=== PATIENT | male | born 1970 | race Hispanic/Latino ===

== ENCOUNTER 2017-09-28 12:01 | Inpatient (IN) | payer MEDICAID ==
[~2017-09-28] VITALS: Ht 175.3 cm; Wt 74.4 kg
[2017-09-28] MEDS ORDERED: SODIUM CHLORIDE 0.9% 1000ML 1,000 ML IV ONE ×3 (12:36→17:42)
[2017-09-28 12:59] LABS: BASOPHILS % (AUTO) 0.4 % (0.0-5.0); EOSINOPHILS % (AUTO) 1.5 % (0.0-8.0); HEMATOCRIT 36.5 % (42-54); MEAN CORPUSCULAR HEMOGLOBIN 31.1 pg (27.0-33.0); MEAN CORPUSCULAR VOLUME 88.8 fL (79-99); MONOCYTES % (AUTO) 11.2 % (3.0-13.0); NEUTROPHILS % (AUTO) 76.9 % (40.0-77.0); PLATELET COUNT (AUTO) 231 K/uL (130-400); RED BLOOD CELL COUNT(AUTO) 4.11 MIL/uL (4.50-6.20); RED CELL DISTRIBUTION WIDTH 13.2 % (11.0-15.5); WHITE BLOOD COUNT (AUTO) 14.8 K/uL (4.8-10.8)
[2017-09-28 13:07] LABS: CREATININE 1.2 mg/dL (0.5-1.5); POTASSIUM 3.8 mmol/L (3.5-5.1)
[2017-09-28 13:12] LABS: ALBUMIN 3.3 g/dL (3.5-5.0); BILIRUBIN,TOTAL 0.6 mg/dL (0.2-1.0); TOTAL PROTEIN, SERUM 8.1 g/dL (6.0-8.3)
[2017-09-28] MEDS ORDERED: ONDANSETRON HCL MDV 20ML 2 MG/ML VIAL ONE (14:08)
[2017-09-28] MEDS ORDERED: KETOROLAC TROMETHAMINE 30MG/ML ONE (14:08)
[2017-09-28 14:33] LABS: CREATINE KINASE MB < 0.5 ng/mL (0.5-3.6); CREATINE KINASE, TOTAL 45 U/L (21-232)
[2017-09-28] MEDS ORDERED: MEROPENEM 1 GM VIAL ONE (14:40)
[2017-09-28 14:56] LABS: APPEARANCE,URINE Clear (CLEAR); BILIRUBIN,URINE Negative (NEGATIVE); COLOR,URINE Dark Yellow (YELLOW); GLUCOSE, URINE (UA) Negative (NEGATIVE); KETONES,URINE Negative (NEGATIVE); LEUKOCYTE ESTERASE ,URINE Trace (NEGATIVE); NITRATE,URINE Negative (NEGATIVE); OCCULT BLOOD,URINE Nonhemolyzed Trace (NEGATIVE); PH,URINE 5.5 (5.0-8.0); PROTEIN,URINE Negative (NEGATIVE)
[2017-09-28 15:17] LABS: BACTERIA,URINE Few /HPF (None Seen); SQUAMOUS EPITHELIAL CELL,UR Rare /HPF (0-2)
[2017-09-28 15:18] LABS: TRANSITIONAL EPI CELLS,URINE Rare /HPF (None Seen)
[2017-09-28] MEDS ORDERED: SODIUM CHLORIDE 0.9% 1000ML 1,000 ML IV SCH (16:30)
[2017-09-28] MEDS ORDERED: MEROPENEM 500MG+NS 50ML 50 ML IV SCH (16:30)
[2017-09-28] MEDS ORDERED: MORPHINE SULFATE 2 MG/ML 1ML SYG IV PRN (16:30)
[2017-09-28] MEDS ORDERED: ONDANSETRON HCL 4 MG/2 ML VIAL IV PRN (16:30)
[2017-09-28] MEDS ORDERED: VANCOMYCIN 1GM+NS 250ML 250 ML IV SCH (16:30)
[2017-09-28] MEDS ORDERED: ACETAMINOPHEN 325 MG TAB PO PRN (16:30)
[2017-09-28] MEDS ORDERED: VANCOMYCIN PROTOCOL PER PHARMACY IV PRN (16:30)
[2017-09-28] MEDS ORDERED: IOPAMIDOL-370 75 ML VIAL IV ONE (17:22)
[2017-09-28 19:00] VITALS: BP 97/56
[2017-09-28] MEDS: MORPHINE SULFATE 4 MG/1ML SYG IV PRN (19:53)
[2017-09-28] MEDS: VANCOMYCIN 1GM+NS 250ML 250 ML IV SCH (21:00)
[2017-09-28] MEDS: MEROPENEM 500 MG VIAL IVP SCH (22:09)
[2017-09-28] MEDS: SODIUM CHLORIDE 0.9% 1000ML 1,000 ML IV SCH (22:10)
[2017-09-28 23:55] VITALS: BP 124/79
[2017-09-29] MEDS: MORPHINE SULFATE 4 MG/1ML SYG IV PRN ×7 (00:20→20:30)
[2017-09-29] MEDS: SODIUM CHLORIDE 0.9% 1000ML 1,000 ML IV SCH ×3 (02:23→20:30)
[2017-09-29 04:17] VITALS: BP 114/63
[2017-09-29 04:20] LABS: HEMATOCRIT 34.2 % (42-54); MEAN CORPUSCULAR HEMOGLOBIN 30.3 pg (27.0-33.0); MEAN CORPUSCULAR VOLUME 89.1 fL (79-99); PLATELET COUNT (AUTO) 205 K/uL (130-400); RED BLOOD CELL COUNT(AUTO) 3.84 MIL/uL (4.50-6.20); RED CELL DISTRIBUTION WIDTH 13.4 % (11.0-15.5); WHITE BLOOD COUNT (AUTO) 14.2 K/uL (4.8-10.8)
[2017-09-29 04:27] LABS: CREATININE 0.9 mg/dL (0.5-1.5); MAGNESIUM 1.8 mg/dL (1.80-2.40)
[2017-09-29] MEDS: MEROPENEM 500 MG VIAL IVP SCH ×3 (05:02→21:45)
[2017-09-29] MEDS ORDERED: PANTOPRAZOLE SODIUM 40 MG TABLET.DR PO ONE (06:27)
[2017-09-29] MEDS: PANTOPRAZOLE SODIUM 40 MG TABLET.DR PO SCH (06:53)
[2017-09-29 07:00] VITALS: BP 112/60
[2017-09-29] MEDS: VANCOMYCIN 1GM+NS 250ML 250 ML IV SCH ×2 (07:40→21:51)
[2017-09-29] MEDS: ENOXAPARIN SODIUM 40 MG/0.4 ML SYRINGE SQ SCH (09:02)
[2017-09-29 11:00] VITALS: BP 106/58
[2017-09-29 16:00] VITALS: BP 139/64
[2017-09-29 19:34] VITALS: BP 109/72
[2017-09-29] MEDS ORDERED: FLUO20CA30 PO (20:07)
[2017-09-29] MEDS ORDERED: TRAZ-187 PO (20:07)
[2017-09-29] MEDS ORDERED: DIAZ10TA4 PO (20:07)
[2017-09-29] MEDS ORDERED: METO50TA18 PO (20:07)
[2017-09-29] MEDS: DIAZEPAM 5 MG TABLET PO SCH (21:45)
[2017-09-29] MEDS: FLUOXETINE HCL 20 MG CAPSULE PO SCH (21:45)
[2017-09-29] MEDS: TRAZODONE HCL 100 MG TABLET PO SCH (21:50)
[2017-09-29] MEDS: METOPROLOL TARTRATE 50 MG TAB PO SCH (21:55)
[2017-09-29 23:43] VITALS: BP 96/50
[2017-09-30] VITALS (26 sets, daily range): BP systolic 103–189; BP diastolic 64–108
[2017-09-30 04:42] LABS: HEMATOCRIT 32.1 % (42-54); MEAN CORPUSCULAR HEMOGLOBIN 32.1 pg (27.0-33.0); MEAN CORPUSCULAR HGB CONC 35.9 g/dL (32.0-36.0); MEAN CORPUSCULAR VOLUME 89.5 fL (79-99); PLATELET COUNT (AUTO) 225 K/uL (130-400); RED BLOOD CELL COUNT(AUTO) 3.58 MIL/uL (4.50-6.20); RED CELL DISTRIBUTION WIDTH 13.3 % (11.0-15.5); WHITE BLOOD COUNT (AUTO) 9.4 K/uL (4.8-10.8)
[2017-09-30 04:49] LABS: CREATININE 0.9 mg/dL (0.5-1.5); POTASSIUM 4.1 mmol/L (3.5-5.1)
[2017-09-30] MEDS: VANCOMYCIN 1GM+NS 250ML 250 ML IV SCH ×3 (05:48→21:14)
[2017-09-30] MEDS: MEROPENEM 500 MG VIAL IVP SCH ×3 (05:48→21:13)
[2017-09-30] MEDS: MEPERIDINE-PF 25 MG/ML SYG IVP PRN ×2 (05:49→21:14)
[2017-09-30] MEDS: PANTOPRAZOLE SODIUM 40 MG TABLET.DR PO SCH (06:33)
[2017-09-30] MEDS: SODIUM CHLORIDE 0.9% 1000ML 1,000 ML IV SCH ×4 (08:23→21:15)
[2017-09-30] MEDS: ENOXAPARIN SODIUM 40 MG/0.4 ML SYRINGE SQ SCH (09:00)
[2017-09-30] MEDS: DIAZEPAM 5 MG TABLET PO SCH ×4 (10:28→21:15)
[2017-09-30] MEDS: METOPROLOL TARTRATE 50 MG TAB PO SCH ×2 (10:28→21:14)
[2017-09-30] MEDS: FLUOXETINE HCL 20 MG CAPSULE PO SCH (10:28)
[2017-09-30] MEDS: MORPHINE SULFATE 4 MG/1ML SYG IV PRN ×3 (11:37→22:44)
[2017-09-30] MEDS ORDERED: MIDAZOLAM HCL 1 MG/ML 2ML VIAL ONE (18:11)
[2017-09-30] MEDS ORDERED: DEXAMETHASONE SOD PHOSPHATE 10MG/ML 1ML VIAL ONE (18:11)
[2017-09-30] MEDS ORDERED: PROPOFOL 10 MG/ML 20ML VIAL IV ONE (18:11)
[2017-09-30] MEDS ORDERED: LIDOCAINE PF 2% 5ML ABBOJECT ONE (18:11)
[2017-09-30] MEDS ORDERED: GLYCOPYRROLATE 0.2 MG/ML 5 ML VIAL ONE (18:11)
[2017-09-30] MEDS ORDERED: FENTANYL CITRATE PF 50 MCG/1 ML 2ML VIAL ONE ×2 (18:12→18:34)
[2017-09-30] MEDS ORDERED: BUPIVACAINE/PF 0.25% 30ML VIAL IJ ONE (19:15)
[2017-09-30] MEDS ORDERED: HYDRALAZINE HCL 20 MG/ML VIAL ONE (20:13)
[2017-09-30] MEDS ORDERED: MEPERIDINE-PF 25 MG/ML SYG ONE ×2 (20:19→20:29)
[2017-09-30] MEDS: TRAZODONE HCL 100 MG TABLET PO SCH (21:15)
[2017-10-01] VITALS (8 sets, daily range): BP systolic 97–134; BP diastolic 50–84
[2017-10-01] MEDS: MEPERIDINE-PF 25 MG/ML SYG IVP PRN ×2 (01:53→05:48)
[2017-10-01] MEDS: MORPHINE SULFATE 4 MG/1ML SYG IV PRN (02:48)
[2017-10-01] MEDS ORDERED: HYDROMORPHONE 1 MG/1 ML AMP ONE (03:40)
[2017-10-01] MEDS ORDERED: HYDROMORPHONE HCL 2 MG/ML VIAL IVP PRN (03:45)
[2017-10-01 04:39] LABS: MEAN CORPUSCULAR HEMOGLOBIN 31.2 pg (27.0-33.0); MEAN CORPUSCULAR HGB CONC 35.1 g/dL (32.0-36.0); MEAN CORPUSCULAR VOLUME 88.9 fL (79-99); PLATELET COUNT (AUTO) 283 K/uL (130-400); RED BLOOD CELL COUNT(AUTO) 3.93 MIL/uL (4.50-6.20); RED CELL DISTRIBUTION WIDTH 13.5 % (11.0-15.5); WHITE BLOOD COUNT (AUTO) 9.4 K/uL (4.8-10.8)
[2017-10-01 05:04] LABS: CREATININE 0.8 mg/dL (0.5-1.5); POTASSIUM 3.8 mmol/L (3.5-5.1)
[2017-10-01] MEDS: PANTOPRAZOLE SODIUM 40 MG TABLET.DR PO SCH (05:44)
[2017-10-01] MEDS: MEROPENEM 500 MG VIAL IVP SCH (05:44)
[2017-10-01] MEDS: VANCOMYCIN 1GM+NS 250ML 250 ML IV SCH ×2 (05:47→13:56)
[2017-10-01] MEDS: FLUOXETINE HCL 20 MG CAPSULE PO SCH (08:01)
[2017-10-01] MEDS: DIAZEPAM 5 MG TABLET PO SCH ×4 (08:01→21:00)
[2017-10-01] MEDS: METOPROLOL TARTRATE 50 MG TAB PO SCH ×2 (08:01→21:00)
[2017-10-01] MEDS: ENOXAPARIN SODIUM 40 MG/0.4 ML SYRINGE SQ SCH (08:02)
[2017-10-01] MEDS ORDERED: MEPERIDINE-PF 75 MG/ML SYG IM PRN (10:30)
[2017-10-01] MEDS ORDERED: ONDANSETRON HCL MDV 20ML 2 MG/ML VIAL IVP PRN (10:30)
[2017-10-01] MEDS: LACTATED RINGERS 1000ML 1,000 ML IV SCH ×2 (11:17→22:10)
[2017-10-01] MEDS: HYDROMORPHONE 1 MG/1 ML AMP IVP PRN ×2 (11:26→18:06)
[2017-10-01] MEDS ORDERED: CEFAZOLIN 2GM / 50 ML 50 ML IV SCH (14:00)
[2017-10-01] MEDS: CEFAZOLIN SODIUM 1 GM VIAL IVP SCH ×2 (14:55→21:57)
[2017-10-01] MEDS: TRAZODONE HCL 100 MG TABLET PO SCH (21:58)
[2017-10-02 03:45] VITALS: BP 133/73
[2017-10-02] MEDS: HYDROMORPHONE 1 MG/1 ML AMP IVP PRN ×2 (03:48→20:42)
[2017-10-02 04:48] LABS: INR 0.91 (0.85-1.15); PARTIAL THROMBOPLASTIN TIME 30.7 SEC (26.3-35.5); PROTHROMBIN TIME 9.6 SEC (9.6-11.6)
[2017-10-02 04:49] LABS: BASOPHILS % (AUTO) 0.8 % (0.0-5.0); EOSINOPHILS % (AUTO) 5.3 % (0.0-8.0); HEMATOCRIT 36.7 % (42-54); LYMPHOCYTES % (AUTO) 20.6 % (21.0-51.0); MEAN CORPUSCULAR HEMOGLOBIN 30.8 pg (27.0-33.0); MEAN CORPUSCULAR HGB CONC 34.9 g/dL (32.0-36.0); MEAN CORPUSCULAR VOLUME 88.3 fL (79-99); MONOCYTES % (AUTO) 10.6 % (3.0-13.0); NEUTROPHILS % (AUTO) 62.7 % (40.0-77.0); PLATELET COUNT (AUTO) 320 K/uL (130-400); RED BLOOD CELL COUNT(AUTO) 4.16 MIL/uL (4.50-6.20); RED CELL DISTRIBUTION WIDTH 13.1 % (11.0-15.5); WHITE BLOOD COUNT (AUTO) 6.8 K/uL (4.8-10.8)
[2017-10-02 04:59] LABS: ALBUMIN 2.3 g/dL (3.5-5.0); BILIRUBIN,TOTAL 0.2 mg/dL (0.2-1.0); CREATININE 0.9 mg/dL (0.5-1.5); POTASSIUM 3.5 mmol/L (3.5-5.1); TOTAL PROTEIN, SERUM 6.8 g/dL (6.0-8.3)
[2017-10-02] MEDS: CEFAZOLIN SODIUM 1 GM VIAL IVP SCH ×3 (06:08→23:07)
[2017-10-02] MEDS: LACTATED RINGERS 1000ML 1,000 ML IV SCH ×2 (06:08→16:30)
[2017-10-02 08:26] VITALS: BP 120/75
[2017-10-02] MEDS: MORPHINE SULFATE 4 MG/1ML SYG IV PRN ×2 (09:43→15:56)
[2017-10-02] MEDS: ENOXAPARIN SODIUM 40 MG/0.4 ML SYRINGE SQ SCH (09:45)
[2017-10-02] MEDS: PANTOPRAZOLE SODIUM 40 MG TABLET.DR PO SCH (09:45)
[2017-10-02] MEDS: DIAZEPAM 5 MG TABLET PO SCH ×4 (09:46→20:41)
[2017-10-02] MEDS: METOPROLOL TARTRATE 50 MG TAB PO SCH ×2 (09:46→20:40)
[2017-10-02] MEDS: FLUOXETINE HCL 20 MG CAPSULE PO SCH (09:46)
[2017-10-02 11:54] VITALS: BP 140/88
[2017-10-02 16:00] VITALS: BP 138/93
[2017-10-02 20:00] VITALS: BP 147/81
[2017-10-02] MEDS: TRAZODONE HCL 100 MG TABLET PO SCH (20:41)
[2017-10-03] VITALS (7 sets, daily range): BP systolic 84–136; BP diastolic 45–73
[2017-10-03] MEDS: CEFAZOLIN SODIUM 1 GM VIAL IVP SCH ×3 (05:54→22:21)
[2017-10-03] MEDS: LACTATED RINGERS 1000ML 1,000 ML IV SCH ×3 (05:55→22:19)
[2017-10-03] MEDS: PANTOPRAZOLE SODIUM 40 MG TABLET.DR PO SCH (07:30)
[2017-10-03] MEDS: METOPROLOL TARTRATE 50 MG TAB PO SCH ×2 (09:00→22:21)
[2017-10-03] MEDS: ENOXAPARIN SODIUM 40 MG/0.4 ML SYRINGE SQ SCH (09:05)
[2017-10-03] MEDS: MORPHINE SULFATE 4 MG/1ML SYG IV PRN ×2 (09:06→13:29)
[2017-10-03] MEDS: DIAZEPAM 5 MG TABLET PO SCH ×4 (09:06→22:21)
[2017-10-03] MEDS: FLUOXETINE HCL 20 MG CAPSULE PO SCH (09:06)
[2017-10-03] MEDS ORDERED: MORPHINE SULFATE 2 MG/ML 1ML SYG ONE (21:36)
[2017-10-03] MEDS: TRAZODONE HCL 100 MG TABLET PO SCH (22:21)
[2017-10-04] VITALS: BP 133/95
[2017-10-04 04:00] VITALS: BP 119/70
[2017-10-04] MEDS: CEFAZOLIN SODIUM 1 GM VIAL IVP SCH ×3 (06:10→23:14)
[2017-10-04] MEDS: LACTATED RINGERS 1000ML 1,000 ML IV SCH ×2 (06:28→18:36)
[2017-10-04 08:00] VITALS: BP 103/64
[2017-10-04] MEDS: PANTOPRAZOLE SODIUM 40 MG TABLET.DR PO SCH (08:13)
[2017-10-04] MEDS: DIAZEPAM 5 MG TABLET PO SCH ×4 (09:18→20:19)
[2017-10-04] MEDS: FLUOXETINE HCL 20 MG CAPSULE PO SCH (09:18)
[2017-10-04] MEDS: METOPROLOL TARTRATE 50 MG TAB PO SCH ×2 (09:18→20:19)
[2017-10-04] MEDS: ENOXAPARIN SODIUM 40 MG/0.4 ML SYRINGE SQ SCH (09:19)
[2017-10-04 11:20] VITALS: BP 107/65
[2017-10-04] MEDS: MORPHINE SULFATE 2 MG/ML 1ML SYG IVP PRN ×2 (12:52→23:36)
[2017-10-04 15:56] VITALS: BP 97/50
[2017-10-04 19:00] VITALS: BP 125/75
[2017-10-04] MEDS: TRAZODONE HCL 100 MG TABLET PO SCH (20:19)
[2017-10-05] VITALS: BP 129/77
[2017-10-05] MEDS: LACTATED RINGERS 1000ML 1,000 ML IV SCH ×2 (02:56→14:41)
[2017-10-05 04:00] VITALS: BP 127/61
[2017-10-05] MEDS: CEFAZOLIN SODIUM 1 GM VIAL IVP SCH ×3 (05:51→22:43)
[2017-10-05] MEDS: MORPHINE SULFATE 2 MG/ML 1ML SYG IVP PRN (06:01)
[2017-10-05] MEDS: PANTOPRAZOLE SODIUM 40 MG TABLET.DR PO SCH (06:06)
[2017-10-05 08:00] VITALS: BP 114/69
[2017-10-05] MEDS: FLUOXETINE HCL 20 MG CAPSULE PO SCH (10:13)
[2017-10-05] MEDS: METOPROLOL TARTRATE 50 MG TAB PO SCH ×2 (10:14→20:54)
[2017-10-05] MEDS: DIAZEPAM 5 MG TABLET PO SCH ×4 (10:14→20:54)
[2017-10-05] MEDS: ENOXAPARIN SODIUM 40 MG/0.4 ML SYRINGE SQ SCH (10:16)
[2017-10-05 11:00] VITALS: BP 102/64
[2017-10-05] MEDS ORDERED: HYDROMORPHONE HCL 0.5 MG/0.5 ML ML ONE (15:06)
[2017-10-05] MEDS: HYDROMORPHONE 1 MG/1 ML AMP IVP PRN (15:13)
[2017-10-05 16:00] VITALS: BP 110/66
[2017-10-05] MEDS: FLUCONAZOLE 100 MG TAB PO SCH (17:03)
[2017-10-05 19:53] VITALS: BP 114/71
[2017-10-05] MEDS: TRAZODONE HCL 100 MG TABLET PO SCH (20:54)
[2017-10-05] MEDS ORDERED: MORPHINE SULFATE 4 MG/1ML SYG ONE (22:40)
[2017-10-06 00:05] VITALS: BP 128/66
[2017-10-06] MEDS: LACTATED RINGERS 1000ML 1,000 ML IV SCH ×2 (00:30→05:30)
[2017-10-06] MEDS: CEFAZOLIN SODIUM 1 GM VIAL IVP SCH ×2 (05:23→14:04)
[2017-10-06] MEDS: PANTOPRAZOLE SODIUM 40 MG TABLET.DR PO SCH (06:02)
[2017-10-06 08:00] VITALS: BP 129/80
[2017-10-06] MEDS: FLUOXETINE HCL 20 MG CAPSULE PO SCH (09:45)
[2017-10-06] MEDS: METOPROLOL TARTRATE 50 MG TAB PO SCH (09:46)
[2017-10-06] MEDS ORDERED: DIAZEPAM 2 MG TAB ONE ×2 (09:47→14:00)
[2017-10-06] MEDS: ENOXAPARIN SODIUM 40 MG/0.4 ML SYRINGE SQ SCH (09:47)
[2017-10-06] MEDS: DIAZEPAM 5 MG TABLET PO SCH ×2 (09:48→12:25)
[2017-10-06 11:00] VITALS: BP 122/77
[2017-10-06] MEDS ORDERED: HYDROMORPHONE HCL 0.5 MG/0.5 ML ML ONE (14:28)
[2017-10-06 16:00] VITALS: BP 133/73
[2017-10-06] MEDS: FLUCONAZOLE 100 MG TAB PO SCH (16:09)
[2017-10-06] MEDS: HYDROMORPHONE 1 MG/1 ML AMP IVP PRN (16:13)
== END 2017-10-06 17:10 | DRG 720 ==
LOC: EDH 12:01 → EDHIP 12:02 → 2DH 18:47 → 3AH 10-01 22:53
PROVIDERS: ADMIT Internal Medicine Nephrology; ATTEND Internal Medicine Nephrology
PROC: 0VTTXZZ Resection of Prepuce, External Approach (ICD-10-PCS; principal; 2017-09-30 18:40)
PROC: 0T9B30Z Drainage of Bladder with Drainage Device, Percutaneous Approach (ICD-10-PCS; 2017-09-30 18:40)
DX: A41.9 Sepsis, unspecified organism (principal); E44.0 Moderate protein-calorie malnutrition; E87.1 Hypo-osmolality and hyponatremia; M41.9 Scoliosis, unspecified; T63.301A Toxic effect of unspecified spider venom, accidental (unintentional), initial encounter; R65.20 Severe sepsis without septic shock; N48.89 Other specified disorders of penis; T44.7X1A Poisoning by beta-adrenoreceptor antagonists, accidental (unintentional), initial encounter; F31.9 Bipolar disorder, unspecified; I10 Essential (primary) hypertension; L03.114 Cellulitis of left upper limb; M19.90 Unspecified osteoarthritis, unspecified site; N39.0 Urinary tract infection, site not specified; L02.512 Cutaneous abscess of left hand; H91.90 Unspecified hearing loss, unspecified ear; N49.2 Inflammatory disorders of scrotum; Z53.20 Procedure and treatment not carried out because of patient's decision for unspecified reasons; Y92.89 Other specified places as the place of occurrence of the external cause
CPT/HCPCS: 36415; 71045; 72193; 80048; 80053; 80202; 81001; 82550; 82553; 83605; 83735; 85025; 85027; 85610; 85730; 87040; 87070; 87076; 87077; 87106; 87186; 87205; 87486; 87797; 88305; 88307; 93005; A4218; A4344; A4606; J0360; J0690; J1100; J1170; J1650; J1885; J2001; J2175; J2185; J2250; J2270; J2704; J3010; J3370; J3490; J7030; J7120; Q9967

== ENCOUNTER 2020-11-22 09:32 | Emergency (ER) | payer MEDICAID ==
[~2020-11-22] VITALS: Ht 170.2 cm; Wt 70.3 kg
[~2020-11-22 09:32] MED LIST: DIAZ10TA4 PO; FLUO20CA30 PO; METO50TA18 PO; TRAZ-187 PO
[2020-11-22 10:27] VITALS: BP 126/85
[2020-11-22 11:38] VITALS: BP 117/87
[2020-11-22] MEDS ORDERED: AZIT500T2 PO (12:29)
[2020-11-22 12:41] VITALS: BP 121/87
== END 2020-11-22 13:49 | disposition home or self-care (01) ==
LOC: EDH 09:32
DX: S93.492A Sprain of other ligament of left ankle, initial encounter (principal); G40.909 Epilepsy, unspecified, not intractable, without status epilepticus; J40 Bronchitis, not specified as acute or chronic; Z79.899 Other long term (current) drug therapy; W18.39XA Other fall on same level, initial encounter; Y93.89 Activity, other specified; Y92.89 Other specified places as the place of occurrence of the external cause; Y99.8 Other external cause status
CPT/HCPCS: 71045; 73600